=== PATIENT | female | born 1995 | race American Indian/Alaskan Native ===

== ENCOUNTER 2017-12-02 15:59 | Emergency (ER) | payer SELFPAY ==
[2017-12-02 16:47] LABS: Basophils % (Auto) 0.9 % (0.0-1.8); Eosinophils # (Auto) 0.1 K/mm3 (0.0-0.4); Eosinophils % (Auto) 2.4 % (0.0-4.3); Hematocrit 40.3 % (30.3-42.9); Hemoglobin 13.4 gm/dl (10.1-14.3); Lymphocytes # (Auto) 2.2 K/mm3 (1.2-5.4); Lymphocytes % (Auto) 37.3 % (13.4-35.0); Mean Corpuscular HGB Conc 33 % (30-34); Mean Corpuscular Hemoglobin 29 pg (28-32); Mean Corpuscular Volume 86 fl (79-97); Monocytes # (Auto) 0.5 K/mm3 (0.0-0.8); Monocytes % (Auto) 8.3 % (0.0-7.3); Platelet Count 357 K/mm3 (140-440); Red Blood Count 4.68 M/mm3 (3.65-5.03); Red Cell Distribution Width 13.1 % (13.2-15.2)
[2017-12-02 18:22] LABS: Bilirubin,Urine NEG (Negative); Blood,Urine LG (Negative); Color,Urine Yellow (Yellow); Mucus,Urine FEW /HPF
[2017-12-02 18:23] LABS: RBC,Urine > 182.0 /HPF (0.0-6.0)
--- NOTE | 2017-12-02 21:22 | Emergency Department Report ---
ED Abdominal Pain HPI - General Chief Complaint: Abdominal Pain Stated Complaint: MISCARRIAGE Source: patient Mode of arrival: Ambulatory Limitations: No Limitations - History of Present Illness Initial Comments: Patient is 22 years old female with no significant past medical history. Patient presented to the ER complaining of vaginal bleeding for the last few weeks. Patient stated that she missed her period for approximately 2 month and she believes that she miscarried. Patient denied any dizziness, shortness of breath or chest pain. MD Complaint: abdominal pain Location: suprapubic Radiation: none Migration to: no migration Severity: mild Severity scale (0 -10): 3 Consistency: constant Improves With: nothing Associated Symptoms: denies other symptoms - Related Data Allergies Allergy/AdvReac Type Severity Reaction Status Date / Time No Known Allergies Allergy Unverified 12/02/17 16:23 ED Review of Systems ROS: Stated complaint: MISCARRIAGE Other details as noted in HPI Comment: All other systems reviewed and negative Constitutional: denies: chills, fever Respiratory: denies: cough, orthopnea, shortness of breath, SOB with exertion Endocrine: denies: excessive sweating Gastrointestinal: abdominal pain. denies: nausea, vomiting ED Past Medical Hx - Past Medical History Previous Medical History?: No - Surgical History Past Surgical History?: No - Social History Smoking Status: Never Smoker Substance Use Type: None ED Physical Exam - General Limitations: No Limitations General appearance: alert, in no apparent distress - Head Head exam: Present: atraumatic, normocephalic, normal inspection - ENT ENT exam: Present: normal exam, normal orophraynx, mucous membranes moist - Neck Neck exam: Present: normal inspection, full ROM. Absent: tenderness, meningismus, lymphadenopathy, thyromegaly - Respiratory Respiratory exam: Present: normal lung sounds bilaterally - Cardiovascular Cardiovascular Exam: Present: regular rate, normal rhythm, normal heart sounds - GI/Abdominal GI/Abdominal exam: Present: soft, normal bowel sounds. Absent: distended, tenderness, guarding, rebound, rigid, organomegaly, mass, bruit, pulsatile mass ED Course Vital Signs 12/02/17 16:23 Temperature 99.6 F Pulse Rate 89 Respiratory 18 Rate Blood Pressure 121/69 O2 Sat by Pulse 98 Oximetry ED Medical Decision Making - Lab Data Result diagrams: 12/02/17 16:32 - Radiology Data Radiology results: report reviewed Referring Physician: DENILSON PURCELL Patient Name: BENIGNO AGUIRRE Date of : 1995 Sex: Female Report Date: 2017-12-02 Report Status: Finalized Findings [facility] [address] [id number] Ultrasound Report Signed Patient: BENIGNO AGUIRRE MR#: [id number] : 1995 Acct:[id number] Age/Sex: 22 / F ADM Date: 12/02/17 Loc: ED Attending Dr: Ordering Physician: DENILSON PURCELL Date of Service: 12/02/17 Procedure(s): US transvaginal Accession Number(s): [id number] cc: DENILSON PURCELL FINAL REPORT PROCEDURE: US TRANSVAGINAL TECHNIQUE: Real-time transvaginal sonography in multiple planes of the pelvis was performed with image documentation. This examination was performed without Doppler. Vascular abnormalities, including ovarian torsion, will not be detectable without Doppler evaluation. CPT 52474 HISTORY: ABDOMINAL PAIN , Vaginal bleeding COMPARISON: No prior studies are available for comparison. FINDINGS: UTERUS Size: 8 x 3.9 x 4.4 cm. Endometrial thickness: 6.5 mm. There is focal thickening of the endometrium in the lower uterine segment which could be focal endometrial hyperplasia or underlying polyp or submucosal fibroid. There is no endometrial fluid. Orientation: anteverted. Cervix: Normal. Fibroids/masses: None. RIGHT Ovary: 3.4 x 1.4 x 2.3 cm. Appearance: There is a 7 millimeter cyst. LEFT Ovary: 3 x 1.8 x 2.2 cm. Appearance: There is a 1.8 centimeter solid echogenic mass.. This could be a hemorrhagic cyst or incidental dermoid. Pelvic fluid: None. Other: None. IMPRESSION: There is focal thickening of the endometrium in the lower uterine segment which could be focal endometrial hyperplasia or underlying polyp or submucosal fibroid. There is no endometrial fluid. There is a 7 millimeter right ovarian cyst. There is a 1.8 centimeter solid echogenic left ovarian mass.. This could be a hemorrhagic cyst or incidental dermoid. There is no ovarian torsion. There is no free pelvic fluid. . Transcribed By: CO Dictated By: SHASHI ODELL MD Electronically Authenticated By: SHASHI ODELL MD Signed Date/Time: 12/02/172346 DD/ 46 TD/TT: 12/02/172346 Critical care attestation.: If time is entered above; I have spent that time in minutes in the direct care of this critically ill patient, excluding procedure time. ED Disposition Clinical Impression: Vaginal bleeding, Pelvic pain Disposition: TO HOME OR SELFCARE Is pt being admited?: No Condition: Stable Instructions: Ovarian Cyst (ED), Abdominal Pain (ED) Referrals: KAILASH BOLDEN MD [Staff Physician] - 3-5 Days
--- NOTE | 2017-12-02 23:48 | Ultrasound Report ---
FINAL REPORT PROCEDURE: US TRANSVAGINAL TECHNIQUE: Real-time transvaginal sonography in multiple planes of the pelvis was performed with image documentation. This examination was performed without Doppler. Vascular abnormalities, including ovarian torsion, will not be detectable without Doppler evaluation. CPT 21512 HISTORY: ABDOMINAL PAIN , Vaginal bleeding COMPARISON: No prior studies are available for comparison. FINDINGS: UTERUS Size: 8 x 3.9 x 4.4 cm. Endometrial thickness: 6.5 mm. There is focal thickening of the endometrium in the lower uterine segment which could be focal endometrial hyperplasia or underlying polyp or submucosal fibroid. There is no endometrial fluid. Orientation: anteverted. Cervix: Normal. Fibroids/masses: None. RIGHT Ovary: 3.4 x 1.4 x 2.3 cm. Appearance: There is a 7 millimeter cyst. LEFT Ovary: 3 x 1.8 x 2.2 cm. Appearance: There is a 1.8 centimeter solid echogenic mass.. This could be a hemorrhagic cyst or incidental dermoid. Pelvic fluid: None. Other: None. IMPRESSION: There is focal thickening of the endometrium in the lower uterine segment which could be focal endometrial hyperplasia or underlying polyp or submucosal fibroid. There is no endometrial fluid. There is a 7 millimeter right ovarian cyst. There is a 1.8 centimeter solid echogenic left ovarian mass.. This could be a hemorrhagic cyst or incidental dermoid. There is no ovarian torsion. There is no free pelvic fluid. .
--- NOTE | 2017-12-02 23:49 | Ultrasound Report ---
FINAL REPORT PROCEDURE: US PELVIC COMPLETE TECHNIQUE: Real-time transabdominal sonography in multiple planes of the pelvis was performed with image documentation. This examination was performed without Doppler. Vascular abnormalities, including ovarian torsion, will not be detectable without Doppler evaluation. HISTORY: ABDOMINAL PAIN , Vaginal bleeding COMPARISON: No prior studies are available for comparison. FINDINGS: UTERUS Size: 8 x 3.9 x 4.4 cm. Endometrial thickness: 6.5 mm. There is focal thickening of the endometrium in the lower uterine segment which could be focal endometrial hyperplasia or underlying polyp or submucosal fibroid. There is no endometrial fluid. Orientation: anteverted. Cervix: Normal. Fibroids/masses: None. RIGHT Ovary: 3.4 x 1.4 x 2.3 cm. Appearance: There is a 7 millimeter cyst. LEFT Ovary: 3 x 1.8 x 2.2 cm. Appearance: There is a 1.8 centimeter solid echogenic mass.. This could be a hemorrhagic cyst or incidental dermoid. Pelvic fluid: None. Other: None. IMPRESSION: There is focal thickening of the endometrium in the lower uterine segment which could be focal endometrial hyperplasia or underlying polyp or submucosal fibroid. There is no endometrial fluid. There is a 7 millimeter right ovarian cyst. There is a 1.8 centimeter solid echogenic left ovarian mass.. This could be a hemorrhagic cyst or incidental dermoid. There is no ovarian torsion. There is no free pelvic fluid.
[2017-12-03 00:10] VITALS: BP 116/71
== END 2017-12-03 00:12 | disposition home or self-care (01) ==
LOC: ED 15:59
DX: R10.2 Pelvic and perineal pain (principal); N93.9 Abnormal uterine and vaginal bleeding, unspecified
CPT/HCPCS: 36415; 76830; 76856; 81001; 84702; 85025; 86850; 86900; 86901